=== PATIENT | male | born 1990 | race Caucasian/White ===

== ENCOUNTER 2016-09-09 23:12 | Emergency (ER) | payer MEDICAID ==
[2016-09-10] MEDS ORDERED: METHYLPRED SOD SUCC 125 MG/2 ML VIAL ONE (00:37)
[2016-09-10] MEDS ORDERED: NEB-ALBUTEROL 2.5 MG/3 ML INH ONE (00:40)
== END 2016-09-10 01:32 | disposition home or self-care (01) ==
LOC: ER 23:12
DX: R07.89 Other chest pain (principal); R06.00 Dyspnea, unspecified
CPT/HCPCS: 71020; 94640; 96372

== ENCOUNTER 2016-09-16 22:55 | Emergency (ER) | payer MEDICAID ==
[2016-09-16] MEDS ORDERED: KETOROLAC 30 MG/ML VIAL ONE (23:26)
[2016-09-17] MEDS ORDERED: DICYCLOMINE 20MG/2ML VIAL IM ONE (00:20)
== END 2016-09-17 01:21 | disposition home or self-care (01) ==
LOC: ER 22:55
DX: N23 Unspecified renal colic (principal); R31.29 Other microscopic hematuria
CPT/HCPCS: 36415; 74000; 76770; 80053; 81001; 83690; 85025; 96372; 96374

== ENCOUNTER 2016-09-23 08:49 | Emergency (ER) | payer MEDICAID ==
[2016-09-23] MEDS ORDERED: LIDOCAINE 2% 20 ML ONE (10:48)
[2016-09-23] MEDS ORDERED: TDaP 0.5 ML VIAL IM.VACC ONE (11:24)
== END 2016-09-23 11:36 | disposition home or self-care (01) ==
LOC: ER 08:49
DX: S61.012A Laceration without foreign body of left thumb without damage to nail, initial encounter (principal); W45.8XXA Other foreign body or object entering through skin, initial encounter; Y92.009 Unspecified place in unspecified non-institutional (private) residence as the place of occurrence of the external cause